=== PATIENT | female | born 1985 | race Two or more races ===

== ENCOUNTER 2017-09-04 17:17 | Emergency (ER) | payer SELFPAY ==
[~2017-09-04] VITALS: Ht 167.6 cm; Wt 54.4 kg
[2017-09-04] MEDS ORDERED: KETOROLAC TROMETHAMINE INJ 60 MG/2 ML VIAL IM ONE (18:00)
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
[2017-09-04] MEDS ORDERED: KETOROLAC TROMETHAMINE INJ 30 MG/ML VIAL ONE (18:13)
--- NOTE | 2017-09-04 19:15 | NUR ---
Patient discharged to home in stable condition. Written and verbal after care instructions given. Patient verbalizes understanding of instruction.
[2017-09-04 19:16] VITALS: BP 127/88
== END 2017-09-04 19:17 | disposition home or self-care (01) ==
LOC: ER 17:25
DX: S62.001A Unspecified fracture of navicular [scaphoid] bone of right wrist, initial encounter for closed fracture (principal); S39.012A Strain of muscle, fascia and tendon of lower back, initial encounter; S63.502A Unspecified sprain of left wrist, initial encounter; S13.4XXA Sprain of ligaments of cervical spine, initial encounter; Z88.5 Allergy status to narcotic agent; V49.49XA Driver injured in collision with other motor vehicles in traffic accident, initial encounter; Y93.89 Activity, other specified; Y92.413 State road as the place of occurrence of the external cause; Y99.8 Other external cause status
CPT/HCPCS: 73110; A4606; J1885; Z7610